=== PATIENT | female | born 1975 | race Caucasian/White ===

== ENCOUNTER 2017-10-13 14:05 | Emergency (ER) | payer OTHER ==
[~2017-10-13] VITALS: Ht 167.6 cm; Wt 64.4 kg
[~2017-10-13 14:05] MED LIST changes: -BUPR300T56; -FLUO20TA2
[2017-10-13] MEDS ORDERED: NS(*) 0.9% 1000 ML BAG 1,000 ML IV ONE (14:11)
--- NOTE | 2017-10-13 14:14 | ER Report ---
History and Physical Time Seen By MD: 14:13 Hx. of Stated Complaint: syncope HPI/ROS 42 year old female joanna became dizzy while talking to her on the phone and fell to the floor when she woke up she was on the floor states that she did not feel she hit her head does not have a current headache felt very nauseated after the episode and vomited recovered . was well this am Allergies: Coded Allergies: codeine (Verified Allergy, Mild, NAUSEA/VOMITING, 10/13/17) hydrocodone (Verified Allergy, Mild, NAUSEA/VOMITING, 10/13/17) oxycodone (Verified Allergy, Mild, NAUSEA/VOMITING, 10/13/17) azithromycin (Verified Adverse Reaction, Unknown, 10/13/17) Home Meds Reported Medications Fluoxetine Hcl (FLUOXETINE HCL) 20 Mg Tablet, QDAY 10/13/17 Bupropion Hcl (BUPROPION XL) 300 Mg Tab.er.24h, QDAY 10/13/17 Discontinued Reported Medications [place]-3 Fatty Acids (FISH OIL) 500 Mg Capsule, 500 MG PO QDAY, CAPSULE 12/10/15 Vits W-Ca,Fe,Fa(<1MG) ( VITAMINS) 1 Each Tablet, 1 EACH PO DAILY, TAB 12/10/15 Discontinued Scripts Benzonatate (BENZONATATE) 200 Mg Capsule, 200 MG PO TID Y for COUGH, #15 CAP 0 Refills Prov:SUSANNE JOHNSON MD 05/17/16 Promethazine Hcl (PROMETHAZINE HCL) 25 Mg Tablet, 25 MG PO Q6H for Nausea, #20 TAB Prov:DAVID SINGH DO 12/10/15 Past Medical/Surgical History depression, anxiety Hx Smoking: No Smoking Status: Never Smoker Exposure to Second Hand Smoke?: No Hx Substance Use Disorder: No Constitutional Vital Sign - Last 24 Hours 10/13/17 10/13/17 10/13/17 10/13/17 14:10 14:11 14:15 14:20 Temp 97.5 Pulse 96 98 96 Resp 16 B/P (MAP) 135/76 135/76 (95) Pulse Ox 99 98 97 O2 Delivery Room Air 10/13/17 10/13/17 10/13/17 10/13/17 14:25 14:30 14:35 14:40 Pulse 97 92 98 85 B/P (MAP) 112/69 (83) Pulse Ox 97 96 91 10/13/17 10/13/17 10/13/17 10/13/17 14:45 14:45 14:50 14:55 Pulse 85 77 76 Pulse Ox 100 100 100 O2 Flow Rate 2.0 10/13/17 10/13/17 10/13/17 10/13/17 15:00 15:05 15:05 15:10 Pulse 81 ? B/P (MAP) 113/68 (83) Pulse Ox 100 10/13/17 10/13/17 10/13/17 10/13/17 15:15 15:20 15:25 15:25 Pulse 88 ??? 85 85 Pulse Ox 100 100 100 10/13/17 10/13/17 10/13/17 10/13/17 15:30 15:30 15:35 15:37 Pulse 75 76 B/P (MAP) 124/71 (88) 124/71 (88) 114/70 (85) Pulse Ox 100 100 10/13/17 10/13/17 10/13/17 10/13/17 15:37 15:38 15:40 15:40 Pulse 80 86 B/P (MAP) 114/70 (85) 114/70 (85) 119/70 (86) 119/70 (86) Pulse Ox 100 99 O2 Delivery Nasal Cannula O2 Flow Rate 2 10/13/17 10/13/17 10/13/17 10/13/17 15:41 15:42 15:42 15:43 Pulse 81 80 B/P (MAP) 119/70 (86) 130/83 (99) 130/83 (99) 130/83 (99) 10/13/17 10/13/17 10/13/17 10/13/17 15:45 15:45 15:50 15:55 Pulse 82 82 76 Pulse Ox 91 91 94 94 10/13/17 10/13/17 10/13/17 10/13/17 16:00 16:00 16:05 16:05 Pulse 77 90 90 B/P (MAP) 107/71 (83) 107/71 (83) Pulse Ox 94 93 93 10/13/17 10/13/17 10/13/17 10/13/17 16:10 16:15 16:20 16:30 Pulse 76 80 78 B/P (MAP) 109/70 (83) Pulse Ox 97 92 93 10/13/17 10/13/17 10/13/17 16:40 16:45 17:00 Pulse 92 76 B/P (MAP) 118/81 (93) Pulse Ox 92 95 Intake and Output 10/13/17 10/13/17 10/14/17 15:00 23:00 07:00 Intake Total 1000 ml Balance 1000 ml Physical Exam 42-year-old female alert and oriented no acute distress GCS of 15 pupils equal round reactive to light EOM intact cranial nerves II-12 grossly intact head is normocephalic atraumatic tympanic membranes are non-reddened throat is non- reddened neck is supple no JVD heart rate is regular no murmurs rubs or gallops lungs clear to auscultation abdomen is soft moves all extremities Medical Decision Making Data Points Result Diagram: 10/13/17 1400 10/13/17 1400 Laboratory Hematology Test 10/13/17 14:00 10/13/17 15:20 10/13/17 16:07 Red Blood Count 4.93 M/uL (4.17-5.56) Mean Corpuscular Volume 88.6 fL (80.0-96.0) Mean Corpuscular Hemoglobin 29.5 pg (26.0-33.0) Mean Corpuscular Hemoglobin Concent 33.3 g/dL (32.0-36.0) Red Cell Distribution Width 13.2 % (11.5-14.5) Mean Platelet Volume 8.5 fL (7.2-11.1) Neutrophils (%) (Auto) 50.8 % (39.4-72.5) Lymphocytes (%) (Auto) 41.2 % (17.6-49.6) Monocytes (%) (Auto) 5.2 % (4.1-12.4) Eosinophils (%) (Auto) 2.1 % (0.4-6.7) Basophils (%) (Auto) 0.7 % (0.3-1.4) Nucleated RBC Relative Count (auto) 0.0 /100WBC Neutrophils # (Auto) 5.9 K/uL (2.0-7.4) Lymphocytes # (Auto) 4.8 K/uL (1.3-3.6) Monocytes # (Auto) 0.6 K/uL (0.3-1.0) Eosinophils # (Auto) 0.2 K/uL (0.0-0.5) Basophils # (Auto) 0.1 K/uL (0.0-0.1) Nucleated RBC Absolute Count (auto) 0.00 K/uL D-Dimer Quantitative (PE/DVT) < 0.27 ug/ml (0-0.50) Sodium Level 137 mmol/L (137-145) Potassium Level 3.6 mmol/L (3.5-5.0) Chloride Level 98 mmol/L (98-107) Carbon Dioxide Level 12 mmol/L (22-31) Blood Urea Nitrogen 8 mg/dl (7-18) Creatinine 0.90 mg/dl (0.52-1.04) Glomerular Filtration Rate Calc > 60.0 Random Glucose 135 mg/dl (75-110) Calcium Level 9.6 mg/dl (8.4-10.2) Magnesium Level 2.0 mg/dl (1.7-2.2) Total Bilirubin 0.2 mg/dl (0.2-1.3) Aspartate Amino Transf (AST/SGOT) 30 U/L (0-35) Alanine Aminotransferase (ALT/SGPT) 31 U/L (0-56) Alkaline Phosphatase 50 U/L (0-126) Total Protein 7.9 gm/dl (6.3-8.2) Albumin 5.1 g/dl (3.5-5.0) Thyroid Stimulating Hormone (TSH) 5.98 uIU/ml (0.46-4.68) Human Chorionic Gonadotropin, Qual Negative (NEGATIVE) Urine Color Yellow Urine Clarity Clear Urine pH 6.0 pH (4.8-9.5) Urine Specific [place] 1.011 Urine Protein 30 mg/dL (NEGATIVE) Urine Glucose (UA) Negative mg/dL (NEGATIVE) Urine Ketones Negative mg/dL (NEGATIVE) Urine Blood Negative (NEGATIVE) Urine Nitrite Negative (NEGATIVE) Urine Bilirubin Negative (NEGATIVE) Urine Urobilinogen Negative mg/dL (0.2-1.9) Urine Leukocyte Esterase Negative (NEGATIVE) Urine RBC None /HPF (0-2/HPF) Urine WBC 1 /HPF (0-5/HPF) Urine Squamous Epithelial Cells None /LPF (</=FEW) Urine Bacteria Negative /HPF (NONE-FEW) Urine Mucus Few /HPF (NONE-FEW) Urine Opiates Screen Negative Urine Barbiturates Screen Negative Ur Tricyclic Antidepressants Screen Negative Urine Phencyclidine Screen Negative Urine Amphetamines Screen Negative Urine Benzodiazepines Screen Negative Urine Cocaine Screen Negative Urine Cannabinoids Screen Positive Troponin I < 0.012 ng/ml Chemistry Test 10/13/17 14:00 10/13/17 15:20 10/13/17 16:07 White Blood Count 11.7 k/uL (4.5-11.0) Red Blood Count 4.93 M/uL (4.17-5.56) Hemoglobin 14.6 g/dL (12.0-16.0) Hematocrit 43.7 % (34.0-47.0) Mean Corpuscular Volume 88.6 fL (80.0-96.0) Mean Corpuscular Hemoglobin 29.5 pg (26.0-33.0) Mean Corpuscular Hemoglobin Concent 33.3 g/dL (32.0-36.0) Red Cell Distribution Width 13.2 % (11.5-14.5) Platelet Count 368 K/uL (150-450) Mean Platelet Volume 8.5 fL (7.2-11.1) Neutrophils (%) (Auto) 50.8 % (39.4-72.5) Lymphocytes (%) (Auto) 41.2 % (17.6-49.6) Monocytes (%) (Auto) 5.2 % (4.1-12.4) Eosinophils (%) (Auto) 2.1 % (0.4-6.7) Basophils (%) (Auto) 0.7 % (0.3-1.4) Nucleated RBC Relative Count (auto) 0.0 /100WBC Neutrophils # (Auto) 5.9 K/uL (2.0-7.4) Lymphocytes # (Auto) 4.8 K/uL (1.3-3.6) Monocytes # (Auto) 0.6 K/uL (0.3-1.0) Eosinophils # (Auto) 0.2 K/uL (0.0-0.5) Basophils # (Auto) 0.1 K/uL (0.0-0.1) Nucleated RBC Absolute Count (auto) 0.00 K/uL D-Dimer Quantitative (PE/DVT) < 0.27 ug/ml (0-0.50) Glomerular Filtration Rate Calc > 60.0 Calcium Level 9.6 mg/dl (8.4-10.2) Magnesium Level 2.0 mg/dl (1.7-2.2) Total Bilirubin 0.2 mg/dl (0.2-1.3) Aspartate Amino Transf (AST/SGOT) 30 U/L (0-35) Alanine Aminotransferase (ALT/SGPT) 31 U/L (0-56) Alkaline Phosphatase 50 U/L (0-126) Total Protein 7.9 gm/dl (6.3-8.2) Albumin 5.1 g/dl (3.5-5.0) Thyroid Stimulating Hormone (TSH) 5.98 uIU/ml (0.46-4.68) Human Chorionic Gonadotropin, Qual Negative (NEGATIVE) Urine Color Yellow Urine Clarity Clear Urine pH 6.0 pH (4.8-9.5) Urine Specific [place] 1.011 Urine Protein 30 mg/dL (NEGATIVE) Urine Glucose (UA) Negative mg/dL (NEGATIVE) Urine Ketones Negative mg/dL (NEGATIVE) Urine Blood Negative (NEGATIVE) Urine Nitrite Negative (NEGATIVE) Urine Bilirubin Negative (NEGATIVE) Urine Urobilinogen Negative mg/dL (0.2-1.9) Urine Leukocyte Esterase Negative (NEGATIVE) Urine RBC None /HPF (0-2/HPF) Urine WBC 1 /HPF (0-5/HPF) Urine Squamous Epithelial Cells None /LPF (</=FEW) Urine Bacteria Negative /HPF (NONE-FEW) Urine Mucus Few /HPF (NONE-FEW) Urine Opiates Screen Negative Urine Barbiturates Screen Negative Ur Tricyclic Antidepressants Screen Negative Urine Phencyclidine Screen Negative Urine Amphetamines Screen Negative Urine Benzodiazepines Screen Negative Urine Cocaine Screen Negative Urine Cannabinoids Screen Positive Troponin I < 0.012 ng/ml Coagulation Test 10/13/17 14:00 D-Dimer Quantitative (PE/DVT) < 0.27 ug/ml Toxicology Test 10/13/17 15:20 Urine Opiates Screen Negative Urine Barbiturates Screen Negative Ur Tricyclic Antidepressants Screen Negative Urine Phencyclidine Screen Negative Urine Amphetamines Screen Negative Urine Benzodiazepines Screen Negative Urine Cocaine Screen Negative Urine Cannabinoids Screen Positive Urinalysis Test 10/13/17 15:20 Urine Color Yellow Urine Clarity Clear Urine pH 6.0 pH (4.8-9.5) Urine Specific [place] 1.011 Urine Protein 30 mg/dL (NEGATIVE) Urine Glucose (UA) Negative mg/dL (NEGATIVE) Urine Ketones Negative mg/dL (NEGATIVE) Urine Blood Negative (NEGATIVE) Urine Nitrite Negative (NEGATIVE) Urine Bilirubin Negative (NEGATIVE) Urine Urobilinogen Negative mg/dL (0.2-1.9) Urine Leukocyte Esterase Negative (NEGATIVE) Urine RBC None /HPF (0-2/HPF) Urine WBC 1 /HPF (0-5/HPF) Urine Squamous Epithelial Cells None /LPF (</=FEW) Urine Bacteria Negative /HPF (NONE-FEW) Urine Mucus Few /HPF (NONE-FEW) EKG/Imaging EKG Interpretation EKG at 1413 normal sinus rhythm ventricular rate 94 QTC is 492 2nd EKG at 1601 normal sinus rhythm ventricular rate 78 QTC is 444 Monitor Interpretation: Normal Sinus Rhythm ED Course/Re-evaluation ED Course CAT scan of the head was negative labs are negative with the exceptions of TSH is elevated and toxicology shows positive for THC we'll place a Holter monitor have her follow up closely with her primary care physician for the rest of the syncope workup she was feeling better after nausea medication and fluids vital signs have remained stable throughout her stay Re-evaluation Better after treatment no current complaints is going home with will return for any problems or concerns Decision to Disposition Date: Oct 13, 2017 Decision to Disposition Time: 17:00 Depart Departure Latest Vital Signs Vital Signs Date Time Temp Pulse Resp B/P (MAP) Pulse Ox O2 Delivery O2 Flow Rate FiO2 10/13/17 17:00 118/81 (93) 10/13/17 16:45 76 95 10/13/17 15:38 Nasal Cannula 2 10/13/17 14:10 97.5 16 Impression: Primary Impression: Syncope Additional Impressions: Hypothyroid Substance abuse Condition: Improved Disposition: HOME OR SELF-CARE Referrals: JAMIA LAZO APRN 1 Day Patient Instructions: Hypothyroidism (DC), Syncope (DC) Additional Instructions: See her primary care provider the next 1-2 days, return for any worsening of symptoms, follow-up for your hypothyroidism, Problem Qualifiers IMMANUEL CUADRA APRN-C Oct 13, 2017 14:14
[2017-10-13] MEDS ORDERED: FLUO20TA2 (14:15)
[2017-10-13] MEDS ORDERED: EMS NS 0.9%(*) 1000 ML BAG 1,000 ML IV ONE (14:15)
[2017-10-13] MEDS ORDERED: PROMETHAZINE 25 MG/ML 1 ML AMP IVP ONE (14:15)
[2017-10-13] MEDS ORDERED: BUPR300T56 (14:15)
[2017-10-13 14:21] LABS: PLATELET COUNT, AUTOMATED 368 K/uL (150-450)
--- NOTE | 2017-10-13 14:21 | EKG ---
FACILITY: [facility] - [place] PATIENT NAME: JOSSELYN MARIN : [id number] MR: [id number] V: [id number] EXAM DATE: ORDERING PHYSICIAN: IMMANUEL CUADRA TECHNOLOGIST: MARIA EUGENIA Antunez Reason : NEURO Blood Pressure : / mmHG Vent. Rate : 094 BPM Atrial Rate : 094 BPM P-R Int : 154 ms QRS Dur : 092 ms QT Int : 394 ms P-R-T Axes : 053 050 053 degrees QTc Int : 492 ms Normal sinus rhythm Mildly prolonged QTc Abnormal ECG No previous ECGs available Confirmed by BURTON MORALES ([id number]) on 10/13/2017 5:32:11 PM Referred By: ELIZABETH Confirmed By:BURTON MORALES
--- NOTE | 2017-10-13 14:56 | RADIOLOGY IMAGING REPORT ---
FACILITY: [facility] PATIENT NAME: Janey Joel : 1975 MR: [id number] V: [id number] EXAM DATE: ORDERING PHYSICIAN: IMMANUEL CUADRA TECHNOLOGIST: Location: [facility] Patient: Janey Joel : 1975 Visit/Account:[id number] Date of Sevice: 10/13/2017 Technique: CHEST SINGLE AP HISTORY: Syncope, fatigue COMPARISON: None available Findings: The lungs are clear. No pleural effusion or pneumothorax. The cardiomediastinal silhouett e is normal. Impression: 1. No acute cardiopulmonary process. Report Dictated By: Angel Ross DO at 10/13/2017 2:50 PM Report E-Signed By: Angel Ross DO at 10/13/2017 2:52 PM WSN:[id number]
--- NOTE | 2017-10-13 15:37 | RADIOLOGY IMAGING REPORT ---
[place] [facility] [place]IENT NAME: Janey Joel : 1975 MR: [id number] V: [id number] EXAM DATE: ORDERING PHYSICIAN: IMMANUEL CUADRA TECHNOLOGIST: Location: [facility] Patient: Janey Joel : 1975 Visit/Account:[id number] Date of Sevice: 10/13/2017 EXAMINATION: CT HEAD WITHOUT CONTRAST COMPARISON: None available HISTORY: syncope PROCEDURE: Noncontrast CT from the vertex through the skull base. One of the following dose optimizat ion techniques was utilized in the performance of this exam: Automated exposure control; adjustment o f the mA and/or kV according to the patient's size; or use of an iterative reconstruction technique. Specific details can be referenced in the facility's radiology CT exam operational policy. FINDINGS: Brain volume: Age-appropriate. Hemorrhage/extra-axial fluid: None. Mass effect/midline shift/edema: None. Ischemia: Stevens-white differentiation is preserved. Ventricles and basal cisterns: Within normal limits. Posterior fossa: Negative. Vessels: Negative. Calvarium, skull base, and scalp: Negative. Visualized sinuses and orbits: Within normal limits. IMPRESSION: Negative age-appropriate noncontrast head CT. Report Dictated By: Pierce Fuentes MD at 10/13/2017 3:29 PM Report E-Signed By: Pierce Fuentes MD at 10/13/2017 3:32 PM WSN:[id number]
--- NOTE | 2017-10-13 16:09 | EKG ---
FACILITY: PATIENT NAME: JOSSELYN MARIN : [id number] MR: [id number] V: [id number] EXAM DATE: ORDERING PHYSICIAN: IMMANUEL CUADRA TECHNOLOGIST: MARIA EUGENIA Antunez Reason : REPEAT DIZZY Blood Pressure : / mmHG Vent. Rate : 078 BPM Atrial Rate : 078 BPM P-R Int : 162 ms QRS Dur : 090 ms QT Int : 390 ms P-R-T Axes : 070 052 058 degrees QTc Int : 444 ms Normal sinus rhythm When compared with ECG of 13-OCT-2017 14:13, QT has shortened Confirmed by BURTON MORALES ([id number]) on 10/13/2017 5:33:29 PM Referred By: KHALIF Confirmed By:BURTON MORALES
[2017-10-13 17:00] VITALS: BP 118/81
--- NOTE | 2017-10-16 06:23 | RT HOLTER TEST ---
[place] [facility] [place] JOSSELYN MARIN : [id number] MR: [id number] V: [id number] EXAM DATE: ORDERING PHYSICIAN: IMMANUEL CUADRA TECHNOLOGIST: Mook Hook-up date: 2017-10-13 17:04:00 Duration: 47:54:00 Test Indications: SYNCOPE Medications: WELLBUTRIN PROZAC 314328 QRS complexes * Ventricular ectopics which represent % of total QRS comp. 9 Supraventricular ectopics which represent <1 % of total QRS comp. * Paced QRS complexes which represent % of total QRS comp. VENTRICULAR ECTOPY * Isolated * Bigeminal Cycles * Couplets * Runs * Beats in Runs * Beats LONGEST at * BPM at :: -- * Beats FASTEST at * BPM at :: -- SUPRAVENTRICULAR ECTOPY 9 Isolated 0 Couplets 0 Runs 0 Beats in Runs * Beats LONGEST at * BPM at :: -- * Beats FASTEST at * BPM at :: -- HEART RATES 56 MIN at 06:14:11 2017-10-15 79 AVG 117 MAX at 21:26:53 2017-10-14 LONGEST RR 1.184 secs at 03:51:54 2017-10-15 S-T LEVELS Channel 1 -12.800 mm MIN at 17:04:00 2017-10-13 -12.800 mm MAX at 17:04:00 2017-10-13 Channel 2 -12.800 mm MIN at 17:04:00 2017-10-13 -12.800 mm MAX at 17:04:00 2017-10-13 Channel 3 -12.800 mm MIN at 17:04:00 2017-10-13 -12.800 mm MAX at 17:04:00 2017-10-13 Normal sinus rhythm Rare Premature supraventricular complexes Confirmed by SONY LINTON ([id number]) on 10/16/2017 6:23:34 AM Referred By: Overread By: SONY LINTON
== END 2017-10-13 17:00 | disposition home or self-care (01) ==
LOC: ER 14:14
DX: R55 Syncope and collapse (principal); E03.9 Hypothyroidism, unspecified; F12.10 Cannabis abuse, uncomplicated
CPT/HCPCS: 70450; 71045; 80305; 81001; 83735; 84443; 84484; 84703; 85025; 85379; 93005; 93225; 96361; 96374; 99284; J2550; 82040; 82247; 82310; 82374; 82435; 82565; 82947; 84075; 84132; 84155; 84295; 84450; 84460; 84520; 93226

== ENCOUNTER → 2017-10-13 | Outpatient (CLI) | payer OTHER ==
[~2017-10-13] MED LIST: BENZ200C15 PO; BUPR300T56; FLUO20TA2; OMEG500C7 PO; PREN-127 PO; PROM-110 PO
== END ==
LOC: AMB 13:47
PROVIDERS: ATTEND Nurse Practitioner
DX: R41.82 Altered mental status, unspecified (principal); R11.10 Vomiting, unspecified
CPT/HCPCS: A0425; A0427

== ENCOUNTER → 2017-12-29 | Outpatient (CLI) | payer OTHER ==
[~2017-12-29] MED LIST changes: +BUPR300T56; +FLUO20TA2
--- NOTE | 2017-12-29 08:17 | RADIOLOGY IMAGING REPORT ---
FACILITY: [facility] - [place] PATIENT NAME: Janey Joel : 1975 MR: [id number] V: [id number] EXAM DATE: ORDERING PHYSICIAN: JAMIA LAZO TECHNOLOGIST: Location: [facility] - [place] Patient: Janey Joel : 1975 Visit/Account:[id number] Date of Sevice: 12/29/2017 EXAMINATION: Abdominal ultrasound complete HISTORY: Lower abdomen pain and back pain with periods COMPARISON: None. FINDINGS: Gallbladder: No stones, wall thickening, pericholecystic fluid or sonographic Miller sign. Liver: Negative. Common duct: Normal measuring 3.7 mm. Pancreas: Negative. Spleen: Normal in size and echogenicity measuring 10.8 cm in length. Kidneys: Normal in size and echogenicity, the right measures 10.3 cm in length, and the left 9.9 cm. No hydronephrosis. Upper abdominal aorta and IVC: Negative. Ascites: None. IMPRESSION: Normal abdominal ultrasound. Report Dictated By: Amaris Lees MD at 12/29/2017 8:11 AM Report E-Signed By: Amaris Lees MD at 12/29/2017 8:13 AM WSN:[email or web address]
--- NOTE | 2017-12-29 12:12 | RADIOLOGY IMAGING REPORT ---
FACILITY: [facility] - [place] PATIENT NAME: Janey Joel : 1975 MR: [id number] V: [id number] EXAM DATE: ORDERING PHYSICIAN: JAMIA LAZO [place]CHN[place]: [place] [facility] [place] : 1975 Visit/Account:[id number] Date of Sevice: 12/29/2017 PELVIC HISTORY: Lower pelvic pain with menses TECHNIQUE: Transabdominal and transvaginal ultrasound pelvis. COMPARISON: None. FINDINGS: Uterus: Retroverted; 8.7 cm length x 4.4 cm AP x 4.7 cm transverse. Myometrium: Unremarkable. Endometrium: Unremarkable; double thickness 7.7 mm. Cervix: Grossly negative. Ovaries: Right - not seen Left - 3 x 2.4 x 1.7 cm Blood flow is documented in the left ovary Adnexa: Grossly unremarkable. Free pelvic fluid: Mild. IMPRESSION: The right ovary was not seen. There is a mild amount of free pelvic fluid otherwise unremarkable pel shady ultrasound Report Dictated By: Amaris Lees MD at 12/29/2017 12:04 PM Report E-Signed By: Amaris Lees MD at 12/29/2017 12:09 PM WSN:[email or web address]
== END ==
LOC: US 01:13
PROVIDERS: ATTEND Nurse Practitioner Family
DX: R10.30 Lower abdominal pain, unspecified (principal)
CPT/HCPCS: 76700; 76856